=== PATIENT | female | born 1995 | race African-American/Black ===

== ENCOUNTER → 2025-07-12 | Outpatient (REF) | payer OTHER ==
[~2025-07-12] MED LIST: SULF1TAB23 PO
== END ==
LOC: M LAB REF 11:54
PROVIDERS: ATTEND Physician Assistant
DX: R30.0 Dysuria (principal)

== ENCOUNTER 2025-07-13 17:25 | Emergency (ER) | payer OTHER ==
[~2025-07-13] VITALS: Ht 165.1 cm; Wt 83.5 kg
[2025-07-13 23:48] LABS: BASO # 0.0 10^3/uL (0.0-0.2); BASO % 0.2 % (0.0-1.0); EOS # 0.1 10^3/uL (0.0-0.5); EOS % 2.4 % (0.0-3.0); LYMPH # 1.7 10^3/uL (1.5-5.0); LYMPH % 36.3 % (24.0-44.0); MONO # 0.5 10^3/uL (0.0-0.8); MONO % 11.1 % (2.0-8.0); NEUTROPHILS # 2.3 10^3/uL (1.5-8.5); NEUTROPHILS % 49.8 % (36.0-66.0); PLATELET COUNT, AUTOMATED 282 10^3/uL (150-450)
[2025-07-14 00:04] LABS: KETONE, URINE AUTO RFX TRACE mg/dL (NEGATIVE); LEUKOCYTE ESTERASE UR AUTO RFX NEGATIVE (NEGATIVE); MUCUS, URINE RFX SMALL (NEGATIVE); NITRITE, URINE AUTO RFX NEGATIVE (NEGATIVE); RBC, URINE AUTO RFX 3 /HPF (0-3); SQUAM EPITHELIAL CELL UR AURFX 14 /HPF (0-6); WBC, URINE AUTO RFX 10 /HPF (0-3)
[2025-07-14 00:06] LABS: URINE PREG TEST NEGATIVE (NEGATIVE)
[2025-07-14 00:16] LABS: ALT/SGPT 48 U/L (7.0-40); AST/SGOT 40 U/L (<34); CALCIUM LEVEL 8.1 MG/DL (8.5-10.1); CARBON DIOXIDE LEVEL 28 MMOL/L (20-31); CHLORIDE LEVEL 104 MMOL/L (98-107); CREATININE FOR GFR 0.73 MG/DL (0.55-1.30); GLOMERULAR FILTRATION RATE > 90.0 (>60); POTASSIUM SERUM 3.4 MMOL/L (3.5-5.1); SODIUM LEVEL 142 MMOL/L (136-145)
[2025-07-14] MEDS: ONDANSETRON 4MG/2ML VIAL IV ONE (00:53)
[2025-07-14] MEDS: KETOROLAC 30 MG/ML 1 ML VIAL IV ONE (00:56)
[2025-07-14] MEDS ORDERED: SULF1TAB23 PO (01:52)
[2025-07-14] MEDS: BACTRIM 160MG/800MG DS TAB PO ONE (02:02)
[2025-07-14 02:03] VITALS: BP 114/60; TEMP 96.5; O2SAT 97
== END 2025-07-14 02:07 | disposition home or self-care (01) ==
LOC: M ED 17:25
DX: N10 Acute pyelonephritis (principal); F10.10 Alcohol abuse, uncomplicated; Z88.0 Allergy status to penicillin; Z79.2 Long term (current) use of antibiotics
CPT/HCPCS: 80048; 80076; 81001; 82150; 83605; 83690; 84703; 85025; 96374; 96375; 99284; J1885; J2405